=== PATIENT | female | born 1995 | race Caucasian/White ===

== ENCOUNTER 2019-03-02 12:32 | Emergency (ER) | payer OTHER ==
[~2019-03-02] VITALS: Ht 167.6 cm; Wt 68.0 kg
[2019-03-02 12:46] VITALS: BP 126/70; Ht 167.6 cm; Wt 68.0 kg
[2019-03-02 13:25] LABS: BASOPHIL % 0.9 % (0-2)
[2019-03-02 13:33] LABS: RED CELL DISTRIBUTION WIDTH 17.4 % (11.5-14.5)
[2019-03-02 13:52] LABS: ALBUMIN 2.5 g/dL (3.4-5.0); CARBON DIOXIDE 24.7 mmol/L (21-32); CHLORIDE SERUM 107 mmol/L (98-107); CREATININE SERUM 0.4 mg/dL (0.6-1.0); GFR1 > 60 mL/min; GLUCOSE SERUM 98 mg/dL (74-106); POTASSIUM SERUM 3.6 mmol/L (3.5-5.1); SODIUM SERUM 139 mmol/L (136-145); TOTAL PROTEIN, SERUM 5.9 g/dL (6.4-8.2)
[2019-03-02 13:53] LABS: ALKALINE PHOSPHATASE 115 U/L (46-116); ALT/SGPT 18 U/L (14-59); AST/SGOT 8 U/L (15-37); BILIRUBIN TOTAL 0.13 mg/dL (0.20-1.00); CALCIUM 8.8 mg/dL (8.5-10.1); LIPASE 54 IU/L (73-393)
[2019-03-02 15:50] LABS: PLATELET COUNT 53 x10^3mcL (130-400)
== END 2019-03-02 16:36 | disposition left against medical advice (07) ==
LOC: ED 12:32
DX: Z53.21 Procedure and treatment not carried out due to patient leaving prior to being seen by health care provider (principal)